=== PATIENT | male | born 1940 | race Caucasian/White ===

== ENCOUNTER 2024-06-24 18:27 | Emergency (ER) | payer OTHER, SELFPAY ==
[2024-06-24] VITALS (7 sets, daily range): BP systolic 128–176; BP diastolic 69–98; PULSE 73–115; RESP 15–20; TEMP 36.9–38.3; O2SAT 92–95; BMI 28.9
--- NOTE | 2024-06-24 | ECG_ITS ---
Test Reason : dizziness Blood Pressure : / mmHG Vent. Rate : 086 BPM Atrial Rate : 086 BPM P-R Int : 152 ms QRS Dur : 104 ms QT Int : 358 ms P-R-T Axes : 059 -05 028 degrees QTc Int : 428 ms Normal sinus rhythm Incomplete right bundle branch block Borderline ECG No previous ECGs available Referred By: Generic ED Physician Electronically Signed By:VERÓNICA ESCOBAR
--- NOTE | 2024-06-24 19:10 | PC.NURSE ---
this rn assumed care of pt, pt a&ox4, respirations even and unlabored. pt reporting onset of dizziness x2 days ago, pt reports when he is dizzy he feels light headed but denies passing out. pt denies nausea, vomiting and chest pain. ems placed 20G in left ac. pt normal sinus on tele 90bpm.
--- NOTE | 2024-06-24 19:23 | ED_ITS ---
HPI - General Adult General Chief complaint: General Medical Stated complaint: AMS,DIZZY Time Seen by Provider: 06/24/24 19:11 Source: patient Mode of arrival: ambulatory Limitations: no limitations History of Present Illness ED Provider: maribell THURSTON narrative: Patient's with history of gout been complaining of feeling lightheaded since earlier today especially on standing, no fever no cough no chest pain or palpitation no nausea no vomiting Related Data Allergies Allergy/AdvReac Type Severity Reaction Status Date / Time No Known Allergies Allergy Verified 06/24/24 18:43 Review of Systems 2 Review of Systems: Yes all other systems are reviewed and are negative [facility] Social History Social History Alcohol intake: current Alcohol intake frequency: 0-2 drinks per day Smoked in Last 30 Days: No Use of substances other than those prescribed or required for medical reasons: No Advance Directives: Yes Advance Directives Information Provided: No Advance Directives on File: No Physical Exam ED Vital Signs: Vital Signs - 24 hr 06/24/24 18:38 06/24/24 20:00 06/24/24 20:00 Temperature 99.4 F 100.9 F H Pulse Rate 98 95 96 Respiratory Rate 16 18 Blood Pressure 145/84 H 165/78 H 165/78 H Pulse Oximetry 95 92 Oxygen Delivery Method Room Air Room Air 06/24/24 20:01 06/24/24 20:04 06/24/24 22:04 Temperature 99.7 F Pulse Rate 100 112 H 74 Respiratory Rate 20 Blood Pressure 176/95 H 167/94 H 133/73 Pulse Oximetry 92 Oxygen Delivery Method Room Air 06/24/24 23:14 06/24/24 23:14 Temperature 98.4 F 98.4 F Pulse Rate 73 73 Respiratory Rate 15 15 Blood Pressure 128/69 128/69 Pulse Oximetry 94 94 Oxygen Delivery Method Room Air Room Air BMI result Body Mass Index 28.9 Appearance: Alert. Oriented X3. No acute distress. Eyes: PERRLA, No Nystagmus ENT: Pharynx normal. Oral Mucosa moist Neck: Normal inspection. Neck supple. CVS: Normal heart rate and rhythm. Pulses normal. Respiratory: No respiratory distress. Equal air entry bilateral, no wheezing/rales/rhonchi Abdomen: Soft and nontender. Bowel sounds are present, no mass palpable, no CVA tenderness Skin: Skin warm and dry. Normal skin color. Normal skin turgor. Extremities: No lower extremity edema. No calf tenderness Neuro: Oriented X 3. No motor deficit. No sensory deficit.No cerebellar signs , cranial nerves II-XII intact Medications Administered Discontinued Medications Generic Name Dose Route Start Last Admin Trade Name Eastonq PRN Reason Stop Dose Admin Acetaminophen 975 mg 06/24/24 20:16 06/24/24 20:21 Acetaminophen 325 Mg Tablet PO 06/24/24 20:17 975 mg ONCE ONE Administration Sodium Chloride 1,000 mls @ 999 mls/hr 06/24/24 20:16 06/24/24 22:52 Ns IV 06/24/24 21:16 Infused .Q1H1M ONE Infusion Medical Decision Making Medical Decision Making [facility] Narrative: Patient with acute onset of dizziness and weakness noted to have temperature of 100.9 degrees in the ER no source of infection workup essentially negative will do the blood cultures lactic acid patient feels much better will ambulate him if lactic acid level is normal will discharge patient home pending blood culture Differential Diagnosis Differential Diagnoses: The differential diagnosis associated with the presentation includes Viral fever/bacteremia/UTI Lab Data [facility] Lab Attestation statement: I reviewed the patient's lab results. 06/24/24 19:22 06/24/24 19:22 Labs: Lab Results 06/24/24 06/24/24 06/24/24 Range/Units 19:22 19:58 20:12 WBC 7.5 (4.8-10.8) X10*3/uL RBC 4.66 (4.60-5.80) X10*6/uL Hgb 14.7 (14.0-18.0) g/dl Hct 41.3 L (42.0-52.0) % MCV 88.6 (80.0-98.0) fL MCH 31.5 (27.0-33.0) pg MCHC 35.6 (31.0-36.0) g/dl RDW 13.2 (11.0-16.0) % Plt Count 208 (160-400) X10*3/uL MPV 8.3 L (9.4-12.4) fL Immature Gran % (Auto) 0.3 (0.0-0.4) % Neut % (Auto) 71.5 (45-73) % Lymph % (Auto) 17.3 L (20-40) % [place] % (Auto) 8.9 (2-11) % Eos % (Auto) 1.6 (0-4) % Baso % (Auto) 0.4 (0-2) % Lymph # (Auto) 1.3 (1.2-4.9) X10*3/uL [place] # (Auto) 0.7 (0.1-1.2) X10*3/uL Eos # (Auto) 0.1 (0.0-0.4) X10*3/uL Baso # (Auto) 0.0 (0.0-0.2) X10*3/uL Abs Immat Gran (auto) 0.02 (0.00-0.03) X10*3/uL Absolute Neuts (auto) 5.4 (2.0-8.3) x10*3/uL Absolute Nucleated RBC 0.000 (0.0-0.012) X10*3/uL Nucleated RBC % (auto) 0.0 (0.0-0.2) /100WBC Sodium 135 (135-145) mmol/L Potassium 4.5 (3.3-5.1) mmol/L Chloride 104 (96-108) mmol/L Carbon Dioxide 23 (22-29) mmol/L Anion Gap 13 (12-20) BUN 26 H (9-16) mg/dL Creatinine 1.23 (0.5-1.4) mg/dL Estim Creat Clear Calc 49.4 Estimated GFR 56 Random Glucose 107 (60-115) mg/dL Lactic Acid (0.5-2.0) mmol/L Calcium 9.7 (8.4-10.2) mg/dL Total Bilirubin 0.7 (0.0-1.0) mg/dL AST 25 (5-37) U/L ALT 24 (0-40) U/L Alkaline Phosphatase 60 (39-117) U/L Troponin I High Sens 6.6 (<3.5-35.0) ng/L Total Protein 7.6 (6.5-8.0) g/dL Albumin 4.3 (3.5-5.0) g/dL Urine Color Yellow Urine Appearance Clear Urine pH 6.0 (5.0-9.0) Ur Specific [place] 1.020 (1.005-1.025) Urine Protein Trace (Neg-Trace) mg/dL Urine Glucose (UA) Negative (Negative) mg/dL Urine Ketones Negative (Negative) mg/dL Urine Blood Trace (Negative) Urine Nitrite Negative (Negative) Ur Leukocyte Esterase Negative (Negative) Urine RBC 0-2 (0-2) /HPF Urine WBC 0-5 (0-5) /HPF Ur Squamous Epith Cells 0-2 (0-2) /HPF Urine Bacteria None Seen (None Seen) Hyaline Casts 0-2 (0-2) /LPF Urine Opiates Screen Not Detected (Not Detect) Ur Buprenorphine Scrn Not Detected (Not Detect) ng/mL Ur Oxycodone Screen Not Detected (Not Detect) ng/mL Urine Methadone Screen Not Detected (Not Detect) ng/mL Urine Fentanyl Screen Not Detected (Not Detect) Ur Barbiturates Screen Not Detected (Not Detect) Ur Phencyclidine Scrn Not Detected (Not Detect) Ur Amphetamines Screen Not Detected (Not Detect) U Benzodiazepines Scrn Not Detected (Not Detect) Urine Cocaine Screen Not Detected (Not Detect) U Marijuana (THC) Screen Not Detected (Not Detect) COVID-19 (XUAN) Negative (Negative) COVID-19 Clin Com See Note 06/24/24 Range/Units 21:37 WBC (4.8-10.8) X10*3/uL RBC (4.60-5.80) X10*6/uL Hgb (14.0-18.0) g/dl Hct (42.0-52.0) % MCV (80.0-98.0) fL MCH (27.0-33.0) pg MCHC (31.0-36.0) g/dl RDW (11.0-16.0) % Plt Count (160-400) X10*3/uL MPV (9.4-12.4) fL Immature Gran % (Auto) (0.0-0.4) % Neut % (Auto) (45-73) % Lymph % (Auto) (20-40) % [place] % (Auto) (2-11) % Eos % (Auto) (0-4) % Baso % (Auto) (0-2) % Lymph # (Auto) (1.2-4.9) X10*3/uL [place] # (Auto) (0.1-1.2) X10*3/uL Eos # (Auto) (0.0-0.4) X10*3/uL Baso # (Auto) (0.0-0.2) X10*3/uL Abs Immat Gran (auto) (0.00-0.03) X10*3/uL Absolute Neuts (auto) (2.0-8.3) x10*3/uL Absolute Nucleated RBC (0.0-0.012) X10*3/uL Nucleated RBC % (auto) (0.0-0.2) /100WBC Sodium (135-145) mmol/L Potassium (3.3-5.1) mmol/L Chloride (96-108) mmol/L Carbon Dioxide (22-29) mmol/L Anion Gap (12-20) BUN (9-16) mg/dL Creatinine (0.5-1.4) mg/dL Estim Creat Clear Calc Estimated GFR Random Glucose (60-115) mg/dL Lactic Acid 0.9 (0.5-2.0) mmol/L Calcium (8.4-10.2) mg/dL Total Bilirubin (0.0-1.0) mg/dL AST (5-37) U/L ALT (0-40) U/L Alkaline Phosphatase (39-117) U/L Troponin I High Sens (<3.5-35.0) ng/L Total Protein (6.5-8.0) g/dL Albumin (3.5-5.0) g/dL Urine Color Urine Appearance Urine pH (5.0-9.0) Ur Specific [place] (1.005-1.025) Urine Protein (Neg-Trace) mg/dL Urine Glucose (UA) (Negative) mg/dL Urine Ketones (Negative) mg/dL Urine Blood (Negative) Urine Nitrite (Negative) Ur Leukocyte Esterase (Negative) Urine RBC (0-2) /HPF Urine WBC (0-5) /HPF Ur Squamous Epith Cells (0-2) /HPF Urine Bacteria (None Seen) Hyaline Casts (0-2) /LPF Urine Opiates Screen (Not Detect) Ur Buprenorphine Scrn (Not Detect) ng/mL Ur Oxycodone Screen (Not Detect) ng/mL Urine Methadone Screen (Not Detect) ng/mL Urine Fentanyl Screen (Not Detect) Ur Barbiturates Screen (Not Detect) Ur Phencyclidine Scrn (Not Detect) Ur Amphetamines Screen (Not Detect) U Benzodiazepines Scrn (Not Detect) Urine Cocaine Screen (Not Detect) U Marijuana (THC) Screen (Not Detect) COVID-19 (XUAN) (Negative) COVID-19 Clin Com Discharge Plan Discharge Clinical Impression: Fever, Dizziness Patient Disposition: Home, Self-Care Instructions: Fever in Adults (ED), Lightheadedness (ED) Additional Instructions: Drink plenty of fluids Cause of your low-grade fever is not clear likely viral Report to the ER if gets worse Tylenol/Motrin for fever We have done blood culture and will call you if anything grows in the blood Interventions: ED Discharge Assessment Last Done: 06/24/24 23:14 Discharge Date/Time: 06/24/24 23:15 Print Language: Luxembourgish
[2024-06-24 19:26] LABS: MANUAL DIFF FLAG NO
[2024-06-24 19:29] LABS: Basophils Percent Auto 0.4 % (0-2); Eosinophils Absolute Auto 0.1 X10*3/uL (0.0-0.4); Eosinophils Percent Auto 1.6 % (0-4); Hematocrit 41.3 % (42.0-52.0); Hemoglobin 14.7 g/dl (14.0-18.0); Imm Gran Abs Auto 0.02 X10*3/uL (0.00-0.03); Imm Gran Pct Auto 0.3 % (0.0-0.4); Lymphocytes Absolute Auto 1.3 X10*3/uL (1.2-4.9); Lymphocytes Percent Auto 17.3 % (20-40); Mean Corpuscular HGB Conc 35.6 g/dl (31.0-36.0); Mean Corpuscular Hemoglobin 31.5 pg (27.0-33.0); Mean Corpuscular Volume 88.6 fL (80.0-98.0); Mean Platelet Volume 8.3 fL (9.4-12.4); Monocytes Absolute Auto 0.7 X10*3/uL (0.1-1.2); Monocytes Percent Auto 8.9 % (2-11); Neutrophils Absolute Auto 5.4 x10*3/uL (2.0-8.3); Neutrophils Percent Auto 71.5 % (45-73); Platelet Count 208 X10*3/uL (160-400); Red Blood Count 4.66 X10*6/uL (4.60-5.80); Red Cell Distribution Width 13.2 % (11.0-16.0); White Blood Count 7.5 X10*3/uL (4.8-10.8)
[2024-06-24 19:48] LABS: Alanine Aminotransferase 24 U/L (0-40); Albumin Level 4.3 g/dL (3.5-5.0); Alkaline Phosphatase 60 U/L (39-117); Anion Gap 13 (12-20); Aspartate Amino Transferase 25 U/L (5-37); Bilirubin Total 0.7 mg/dL (0.0-1.0); Blood Urea Nitrogen 26 mg/dL (9-16); Calcium 9.7 mg/dL (8.4-10.2); Carbon Dioxide 23 mmol/L (22-29); Chloride 104 mmol/L (96-108); Creatinine Clr Calc Pharmacy 49.4; Estimated Glomerular Filt Rate 56; Glucose Random 107 mg/dL (60-115); Potassium 4.5 mmol/L (3.3-5.1); Sodium 135 mmol/L (135-145); Total Protein 7.6 g/dL (6.5-8.0)
[2024-06-24 19:55] LABS: Troponin-I High Sensitivity 6.6 ng/L (<3.5-35.0)
--- NOTE | 2024-06-24 20:09 | MHC.EDTECH ---
pt walked to and from bathroom with 1 assist and steady gait. pt did mention feeling dizzy once he got back in bed, RN aware
[2024-06-24 20:21] LABS: Appearance Urine Clear; Color Urine Yellow; Glucose Urine UA Negative (Negative); Leukocyte Esterase Urine Negative (Negative); Nitrite Urine Negative (Negative); UMIC TRIGGER UACC YES; Urine Blood Trace (Negative); Urine Ketones Negative (Negative); Urine Protein Trace mg/dL (Neg-Trace)
[2024-06-24] MEDS: Acetaminophen 325 MG TABLET 975 MG PO (20:21)
[2024-06-24] MEDS: 0.9 % Sodium Chloride 1,000 ML 999 ML IV (20:22)
--- NOTE | 2024-06-24 20:23 | PC.NURSE ---
pt noted to have fever, aware. pt medicated per dec.
[2024-06-24 20:26] LABS: Bacteria Urine None Seen (None Seen); Hyaline Casts Urine 0-2 /LPF (0-2); RBC Urine 0-2 /HPF (0-2); Squamous Epithelial Cell Urine 0-2 /HPF (0-2); WBC Urine 0-5 /HPF (0-5)
[2024-06-24 20:33] LABS: COVID-19 Test Negative (Negative); IDNOW Serial# 08D9AD1C
[2024-06-24 20:40] LABS: Amphetamine Screen Urine Not Detected (Not Detect); Barbiturates, Urine Not Detected (Not Detect); Benzodiazepines Screen Urine Not Detected (Not Detect); Buprenorphine Scr Not Detected (Not Detect); Cannabinoid Screen Urine Not Detected (Not Detect); Cocaine Screen Urine Not Detected (Not Detect); Fentanyl, urine Not Detected (Not Detect); Methadone Screen, Urine Not Detected (Not Detect); Opiate Screen Urine Not Detected (Not Detect); Oxycodone Screen Urine Not Detected (Not Detect); Phencyclidine Screen Urine Not Detected (Not Detect)
--- OUTSIDE RECORDS SUMMARY | 2024-06-24 21:32 | XMS_ITS | Continuity of Care Document ---
Author Organization [facility] Address [address] [facility] [address] [place] [address]- Care Team Providers Care Solution Spec Name Role Phone Nata GLEZ, Daniel Primary Care Physician Encounter 03/18/23 - 03/25/23 [facility] [address] [facility] [address] [place] [address]- Attending Physician: Angélica Smith Admitting Physician: Angélica Smith Referring Physician: Angélica Smith Results Radiology Reports * Exam Date Time Procedure Performing Provider Status 03/18/23 11:[address] Abd/Pelvis W/O Contrast Dusty Regalado; Auth (Verified) Notes: (CT Abd/Pelvis W/O Contrast) Reason For Exam: n50.9 r10.84 disorder of male genital organs unspecified generalized abd pain RESULT: CT Abd/Pelvis W/O Contrast CT Abd/Pelvis W/O Contrast Reason: n50.9 r10.84 disorder of male genital organs unspecified generalized abd pain; Clinical Question(s): Other: TECHNIQUE: Spiral CT through the abdomen and pelvis without IV contrast formatted in 3 planes. Thisstudy was performed without oral contrast. Weight- based protocol using automatic tube modulation was used to optimize exposure parameters. CTDIvol Body: 12.02 mGy, DLP Body: 743 mGy*cm. COMPARISON: 08/22/2012 from [facility] FINDINGS: The heart is normal in size. Coronary arterial calcification is present. There is no pericardial effusion. Linear areas of scar or atelectasis within the lingula and left lower lobe are seen. The liver, gallbladder, spleen, pancreas, and adrenal glands have an unremarkable unenhanced appearance. The kidneys are normal in morphology. No cysts, masses, or calculi are seen. Minimal perinephric stranding bilaterally is consistent with senescent change. The bladder wall is slightly thickened and there are right and left bladder wall diverticula, new from the prior study. No adjacent inflammatory change is seen. The appendix is unremarkable. Diverticulosis of the descending colon and rectosigmoid is seen without wall thickening or mesenteric stranding to suggest the presence of diverticulitis. There is no obstruction. There is no free air, free fluid, or lymphadenopathy. The osseous structures are intact. IMPRESSION: Bladder wall thickening and multiple diverticula which could be due to chronic bladder outlet obstruction. Correlation for urinalysis and consideration of cystoscopy is suggested. An actionable message (Yellow) has been communicated via the [facility] system on 03/18/2023 12:47 PM, Message ID [id number]. WSN: [id number] Ordering Physician: Angélica Pino Dictated By: Lucrecia Loya MD Dictated Date/Time: 03/18/23 12:47 p Reviewed By: Lucrecia Loya MD Signed By: Lucrecia Loya MD Signed Date/Time: 03/18/23 12:47 pm Transcribed By: HERNANDEZ Transcribed Date/Time: 03/18/23 12:[address] Abdomen and Pelvis WO contrast * [facility]SP[facility]ers[facility] , CIS S: TRANSCRIBE Lucrecia Loya MD: VERIFY Event Display: Result: Authored Date: [id number] CT Abd/Pelvis W/O Contrast Reason: n50.9 r10.84 disorder of male genital organs unspecified generalized abd pain; Clinical Question(s): Other: TECHNIQUE: Spiral CT through the abdomen and pelvis without IV contrast formatted in 3 planes. Thisstudy was performed without oral contrast. Weight- based protocol using automatic tube modulation was used to optimize exposure parameters. CTDIvol Body: 12.02 mGy, DLP Body: 743 mGy*cm. COMPARISON: 08/22/2012 from [facility] FINDINGS: The heart is normal in size. Coronary arterial calcification is present. There is no pericardial effusion. Linear areas of scar or atelectasis within the lingula and left lower lobe are seen. The liver, gallbladder, spleen, pancreas, and adrenal glands have an unremarkable unenhanced appearance. The kidneys are normal in morphology. No cysts, masses, or calculi are seen. Minimal perinephric stranding bilaterally is consistent with senescent change. The bladder wall is slightly thickened and there are right and left bladder wall diverticula, new from the prior study. No adjacent inflammatory change is seen. The appendix is unremarkable. Diverticulosis of the descending colon and rectosigmoid is seen without wall thickening or mesenteric stranding to suggest the presence of diverticulitis. There is no obstruction. There is no free air, free fluid, or lymphadenopathy. The osseous structures are intact. IMPRESSION: Bladder wall thickening and multiple diverticula which could be due to chronic bladder outlet obstruction. Correlation for urinalysis and consideration of cystoscopy is suggested. An actionable message (Yellow) has been communicated via the [facility] system on 03/18/2023 12:47 PM, Message ID [id number]. WSN: [id number] Ordering Physician: Angélica Pino Dictated By: Lucrecia Loya MD Dictated Date/Time: 03/18/23 12:47 p Reviewed By: Lucrecia Loya MD Signed By: Lucrecia Loya MD Signed Date/Time: 03/18/23 12:47 pm Transcribed By: HERNANDEZ Transcribed Date/Time: 03/18/23 12:35 pm Patient Care team information Care Team Personnel Name: Daniel Peace MD Position: Reference Physician Member Role: PCP Address: Address: [address] [place] [address]- Care Team Related Persons Name: GOMEZ GUTIERRES Address: [facility] [address] [place] [address]
--- OUTSIDE RECORDS SUMMARY | 2024-06-24 21:32 | XMS_ITS | Continuity of Care Document ---
Author Organization [facility] Address [address] [place] [address]- Care Team Providers Care Generator Repairer Name Role Phone Hannah Menchaca MD Primary Care Physician Unava ilable [place] [facility] [place]23 - 08/29/23 [facility] [address] [place] [address]- Attending Physician: Louisa Iqbal Admitting Physician: Louisa Iqbal Referring Physician: Louisa Iqbal Allergies, Adverse Reactions, Alerts Substance Reaction Severity Status amoxicillin 1 Persistent Mild Active finasteride 2 Persistent Mild Active lisinopril 3 Persistent Severe Active diclofenac 4 Persistent Mild Active Peridex 5 Persistent Mild Active Latex 6 Persistent Mild Active 1RASH. HIVES 2DIZZY, NAUSEA 3swelling 4rash 5RASH, HIVES 6RASH Medications amLODIPine 5 mg oral tablet 1 tablet = 5 mg, By Mouth, Daily, TAKE 1 TABLET BY MOUTH EVERY DAY Start Date: 06/03/23 Status: Ordered gabapentin 100 mg oral capsule 100 mg, 1, capsule, Refills 0, Maintenance, 07/30/23 15:04:00 EDT, Partial fill upon patient request if the prescription is for a schedule II opioid drug. Start Date: 07/30/23 Status: Ordered lovastatin 40 mg oral tablet 1.5 tablets, By Mouth, Daily at bedtime, 0 Refills, Maintenance, 06/03/23 8:39:00 EDT, Partial fillupon patient request if the prescription is for a schedule II opioid drug. Start Date: 06/03/23 Status: Ordered tamsulosin 0.4 mg oral capsule 0.8 mg, 2, capsule, By Mouth, Daily at bedtime, Refills 0, Maintenance, 06/03/23 8:39:00 EDT, Partial fill upon patient request if the prescription is for a schedule II opioid drug. Start Date: 06/03/23 Status: Ordered telmisartan 40 mg oral tablet 1 tablet = 40 mg, By Mouth, Daily, 0 Refills, Maintenance, 06/03/23 8:39:00 EDT, Partial fill upon patient request if the prescription is for a schedule II opioid drug. Start Date: 06/03/23 Status: Ordered Problem List Condition Confirmation Course Effective Dates Status Health St atus Informant Chronic pain Confirmed Active Pudendal neuralgia Confirmed Active Patient Care team information Care Team Personnel Name: Hannah Menchaca MD Position: [facility] Outreach Member Role: PCP Address: Address: [address] [place] [id number]- Care Team Related Persons Name: GOMEZ GUTIERRES Address: home [address] [place] [address]
--- OUTSIDE RECORDS SUMMARY | 2024-06-24 21:32 | XMS_ITS | Continuity of Care Document ---
Author Organization [facility] Address [address] [place] [address]- Care Team Providers Care Business Banking Officer Name Role Phone Hannah Menchaca MD Primary Care Physician Unava ilable Encounter [facility] [place] [place] [id number] Date(s): 06/05/23 - 07/05/23 [facility] [address] [place] [address]- Allergies, Adverse Reactions, Alerts Substance Reaction Severity [...] EVERY DAY Start Date: 06/03/23 Status: Ordered lovastatin 40 mg oral tablet [...] opioid drug. Start Date: 06/03/23 Status: Ordered Patient Care team information Care Team Personnel Name: Hannah Menchaca MD Position: S Outreach Member Role: PCP Address: Address: [address] [place] [address] [place] [address]- Care Team Related Persons Name: GOMEZ GUTIERRES Address: home [address] [place] [address]
--- OUTSIDE RECORDS SUMMARY | 2024-06-24 21:32 | XMS_ITS | Continuity of Care Document ---
Author Organization [facility] Address [address] [address]- Care Team Providers Care Shotblast Operator Name Role Phone Daniel Peace MD Primary Care Physician Encounter [facility] Date(s): 04/29/23 - 05/29/23 [facility] [address] [place] [id number]- Patient Care team information Care Team Personnel Name: Daniel Peace MD Position: Reference Physician Member Role: PCP Address: Address: [address] [place] [address]- Care Team Related Persons Name: GOMEZ GUTIERRES Address: home [address] [place] [address]
--- NOTE | 2024-06-24 21:51 | MHC.EDTECH ---
pt ambulated around the ER, to the bathroom, and walked back to room with a steady gait and no complaints
[2024-06-24 21:58] LABS: Lactic Acid 0.9 mmol/L (0.5-2.0)
== END 2024-06-24 23:15 | disposition home or self-care (01) ==
PROVIDERS: Emergency Provider Internal Medicine
DX: R50.9 Fever, unspecified (principal); R42 Dizziness and giddiness; R41.82 Altered mental status, unspecified; I45.10 Unspecified right bundle-branch block; Z11.52 Encounter for screening for COVID-19; Z79.899 Other long term (current) drug therapy; Z51.81 Encounter for therapeutic drug level monitoring
CPT/HCPCS: 36415; 80053; 80307; 81001; 83605; 84484; 85025; 87040; 87635; 93005; 99285

== ENCOUNTER 2024-06-25 08:05 | Emergency (ER) | payer OTHER, SELFPAY ==
--- NOTE | ~2024-06-25 | CT_ITS ---
EXAMINATION: CT HEAD WITHOUT CONTRAST CLINICAL INFORMATION: Confusion and weakness. COMPARISON: None. TECHNIQUE: Contiguous axial imaging was performed from the skull base to vertex without intravenous administration of contrast. This CT examination was performed using dose optimization techniques as appropriate, variously including the following: *Automated exposure control *Adjustment of mA and/or kV according to patient size (this includes techniques or standardized protocols for targeted exams where dose is matched to indication/reason for exam; i.e. extremities or head) *Use of iterative reconstruction technique DLP: 6 cm and 37 mGy-cm FINDINGS: There is no evidence of acute intracranial hemorrhage or edematous territorial infarction. A few foci of hypoattenuation in the periventricular and deep white matter are consistent with mild microangiopathy. [place]-white matter differentiation is preserved. Proportional prominence of the ventricles and sulcal spaces. No evidence for obstructive hydrocephalus. No abnormal mass effect or midline shift. No extra-axial fluid collections. No acute soft tissue or osseous abnormalities. Opacification of the right frontal sinus and partial opacification of several ethmoid air cells. Mucous retention cyst in the posterior right-sided sphenoidal sinus. Small amount of inspissated mucous secretions adjacent to the maxillary antrum on the right side. Bilateral lens extraction. CT/CT head/brain wo IV con IMPRESSION: 1. No evidence of acute intracranial hemorrhage or edematous territorial infarction. 2. 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 3. Paranasal sinus disease. Correlate clinically for the presence of acute sinusitis. Electronically signed by: Rachel Guidry MD 06/25/2024 12:32 PM EDT
--- NOTE | ~2024-06-25 | XR_ITS ---
EXAMINATION: XR CHEST CLINICAL INFORMATION: Fever. COMPARISON: None available. TECHNIQUE: Frontal view of the chest was obtained. FINDINGS: Low lung volumes. Subtle bibasilar hazy airspace opacities and streaky opacities. No pleural effusion or pneumothorax. Normal appearance of the cardiomediastinal silhouette. No acute osseous findings. XR/XR chest 1V IMPRESSION: Possibly early infectious/inflammatory infiltrates in the lower lobes with admixed subsegmental atelectasis. Recommend short-term follow-up radiograph to ensure resolution. Electronically signed by: Rachel Guidry MD 06/25/2024 09:15 AM EDT
--- NOTE | 2024-06-25 08:15 | ECG_ITS ---
Test Reason : AMS Blood Pressure : / mmHG Vent. Rate : 081 BPM Atrial Rate : 081 BPM P-R Int : 154 ms QRS Dur : 106 ms QT Int : 384 ms P-R-T Axes : 045 -25 009 degrees QTc Int : 446 ms Normal sinus rhythm Incomplete right bundle branch block Cannot rule out Anterior infarct , age undetermined Abnormal ECG When compared with ECG of 24-JUN-2024 19:05, No significant change was found Referred By: Josephine Alvarado Electronically Signed By:VERÓNICA ESCOBAR
--- NOTE | 2024-06-25 08:16 | ED.WEAKNESS ---
HPI - Weakness General Chief complaint: General Medical Stated complaint: AMS x2 days condition worsened since last visit Time Seen by Provider: 06/25/24 08:05 Source: patient and EMS Limitations: no limitations History of Present Illness ED Provider: Agueda Alvarado PA-C HPI Narrative: 84 yo male with history of HTN presents to the ER from home for evaluation of confusion and weakness. He was seen here yesterday for a fever of 100.9, had unremarkable workup with a negative COVID swab, normal lactic acid, normal white blood cell count. He was sent home with pending blood cultures, told to return if he had new or worsening symptoms. Family reports he did not sleep all night, he was confused. When trying to ambulate he felt more weak and needed to rest. His called 911 for further evaluation treatment. He was confused for EMS but hemodynamically stable On arrival to the ER patient is alert and oriented x3. MD Complaint: generalized weakness, lack of energy and difficulty walking Onset (ago): day(s) (1) Duration: progressively worsening Location: generalized Severity: moderate Relieving factors: none Exacerbating factors: none Associated symptoms: denies other symptoms Related Data Previous Rx's ?Medication ?Instructions ?Recorded azithromycin 250 mg tablet 250 mg PO DAILY 4 days #4 tabs 06/25/24 cefpodoxime 200 mg tablet 200 mg PO BID #12 tabs 06/25/24 Allergies Allergy/AdvReac Type Severity Reaction Status Date / Time amoxicillin Allergy Unknown Verified 06/25/24 08:32 clavulanic acid Allergy Unknown Verified 06/25/24 09:02 [From Augmentin] clindamycin Allergy Unknown Verified 06/25/24 09:03 diclofenac Allergy Unknown Verified 06/25/24 08:32 Latex, Natural Rubber Allergy Unknown Verified 06/25/24 09:03 lisinopril Allergy Angioedema Verified 06/25/24 09:03 doxycycline AdvReac Unknown Verified 06/25/24 09:02 Review of Systems Review of Systems: Yes all other systems are reviewed and are negative ON LICENSE OF [facility] Social History Social History Alcohol intake: current Alcohol intake frequency: a few times a week Advance Directives Date on File: 06/24/24 Physical Exam Vital Signs: Vital Signs: Last Vital Signs Temp 98.1 F 06/25/24 10:00 Pulse 77 06/25/24 14:45 Resp 23 H 06/25/24 11:58 BP 140/70 H 06/25/24 14:45 Pulse Ox 93 06/25/24 14:45 O2 Del Method Room Air 06/25/24 11:58 BMI result Body Mass Index 28.0 Appearance: Alert elderly male sitting up in the stretcher. Oriented X3. No acute distress. Head: normocephalic, atraumatic. Eyes: Pupils equal, round and reactive to light. ENT: Pharynx normal. No tonsillar swelling or exudate. Neck: Normal inspection. Neck supple. CVS: Normal heart rate and rhythm. Pulses normal. Respiratory: No respiratory distress. Breath sounds diminished at the bases Abdomen: Soft and nontender. +BS x4 Skin: Skin warm and dry. Normal skin color. Normal skin turgor. No rashes. Extremities: No lower extremity edema. No joint swelling. Neuro/psych: Oriented X 3. No motor deficit. No sensory deficit. Strength is equal and symmetrical throughout CN II-XII intact. Normal speech and cognition. Course Reevaluation(s) Reevaluation #1: Physician observation started at 1304 - patient was placed in physician observation pending physical therapy evaluation and case management consultation. Will plan to ambulate with pulse oximetry to ensure he does not desaturate. He was treated with IV antibiotics for pneumonia and has been significantly improved. He is not altered or confused. He continued have nonfocal mental status on re-evaluation. He is feeling better. Time: 13:04 Reevaluation #2: Physician observation discontinued at this time. Patient was seen by Physical therapy and did very well. He was saturating 94% with ambulation and did not desaturate. No shortness a breath. He does not require ICU level of care at this time. Patient is stable for discharge with home PT services. Case management is arranging this. Stable for DC. Family updated at the bedside and is agreeable with plan Time: 16:08 Medications Administered Discontinued Medications Generic Name Dose Route Start Last Admin Trade Name Freq PRN Reason Stop Dose Admin Ceftriaxone Sodium 1 gm/ 50 mls @ 100 mls/hr 06/25/24 09:20 06/25/24 11:01 Sodium Chloride IV 06/25/24 09:49 Infused ONCE ONE Infusion Azithromycin 500 mg/ Sodium 250 mls @ 125 mls/hr 06/25/24 09:20 06/25/24 12:32 Chloride IV 06/25/24 11:19 Infused ONCE ONE Infusion Medical Decision Making Medical Decision Making [facility] Narrative: 84 yo male with history of HTN presents to the ER from home for evaluation of confusion and weakness. He was seen here yesterday after he developed symptoms at home including fever. He had an unremarkable workup and was sent home. Symptoms overnight continue to worsen, inability to ambulate due to weakness and confusion. On arrival to the ER he is oriented x3, although slow to respond at times. He is nonfocal neurologically, with equal and symmetrical strength throughout. Some global weakness is noted. NIH is 0. He is hemodynamically stable, afebrile. Saturating well on room air. He does endorse some weakness and not feeling ?right. ? Lab workup repeated today shows no leukocytosis. Lactic acid is normal. Read today is showing bilateral pneumonia. He is not hypoxic. He has remained awake, alert, oriented and nonfocal on examination. IV antibiotics for community-acquired pneumonia were given along with IV fluids. Patient felt improved after these interventions. Physical therapy saw the patient and recommended home with PT. Family comfortable with discharge home as he clinically improved today. Comfortable discharge home, return precautions were discussed. Stable for DC Differential Diagnosis Differential Diagnoses: The differential diagnosis associated with the presentation includes viral illness, tick borne illness, pneumonia, UTI, bacteremia, doubt meningitis Admission/Observation Consideration of admission/observation: Escalation of care including admission/observation considered Lab Data [facility] Lab Attestation statement: I reviewed the patient's lab results. 06/25/24 08:49 06/25/24 08:49 Labs: Lab Results 06/25/24 06/25/24 06/25/24 Range/Units 08:49 08:59 09:07 WBC 6.8 (4.8-10.8) X10*3/uL RBC 4.99 (4.60-5.80) X10*6/uL Hgb 15.5 (14.0-18.0) g/dl Hct 45.4 (42.0-52.0) % MCV 91.0 (80.0-98.0) fL MCH 31.1 (27.0-33.0) pg MCHC 34.1 (31.0-36.0) g/dl RDW 13.2 (11.0-16.0) % Plt Count 202 (160-400) X10*3/uL MPV 8.3 L (9.4-12.4) fL Immature Gran % (Auto) 0.3 (0.0-0.4) % Neut % (Auto) 71.6 (45-73) % Lymph % (Auto) 18.3 L (20-40) % [place] % (Auto) 9.0 (2-11) % Eos % (Auto) 0.4 (0-4) % Baso % (Auto) 0.4 (0-2) % Lymph # (Auto) 1.2 (1.2-4.9) X10*3/uL [place] # (Auto) 0.6 (0.1-1.2) X10*3/uL Eos # (Auto) 0.0 (0.0-0.4) X10*3/uL Baso # (Auto) 0.0 (0.0-0.2) X10*3/uL Abs Immat Gran (auto) 0.02 (0.00-0.03) X10*3/uL Absolute Neuts (auto) 4.8 (2.0-8.3) x10*3/uL Absolute Nucleated RBC 0.000 (0.0-0.012) X10*3/uL Nucleated RBC % (auto) 0.0 (0.0-0.2) /100WBC ESR 28 H (0-15) MM/HR Sodium 137 (135-145) mmol/L Potassium 4.4 (3.3-5.1) mmol/L Chloride 105 (96-108) mmol/L Carbon Dioxide 23 (22-29) mmol/L Anion Gap 13 (12-20) BUN 20 H (9-16) mg/dL Creatinine 1.26 (0.5-1.4) mg/dL Estim Creat Clear Calc 47.5 Estimated GFR 55 Random Glucose 109 (60-115) mg/dL Lactic Acid 1.0 (0.5-2.0) mmol/L Calcium 9.8 (8.4-10.2) mg/dL Magnesium 2.2 (1.6-2.6) mg/dL Total Bilirubin 1.0 (0.0-1.0) mg/dL Direct Bilirubin 0.3 (0.0-0.5) mg/dL AST 20 (5-37) U/L ALT 23 (0-40) U/L Alkaline Phosphatase 57 (39-117) U/L C-Reactive Protein 1.75 H (< or = 0.50) mg/dL Total Protein 7.8 (6.5-8.0) g/dL Albumin 4.5 (3.5-5.0) g/dL Urine Color Urine Appearance Urine pH (5.0-9.0) Ur Specific [place] (1.005-1.025) Urine Protein (Neg-Trace) mg/dL Urine Glucose (UA) (Negative) mg/dL Urine Ketones (Negative) mg/dL Urine Blood (Negative) Urine Nitrite (Negative) Ur Leukocyte Esterase (Negative) Respiratory Panel [place] See Note Adenovirus (Rapid PCR) Not Detected (Not Detect.) B.pert (TEM-PCR) Not Detected (Not Detect.) B.parapertussis DNA PCR Not Detected (Not Detect.) C. pneumoniae DNA (PCR) Not Detected (Not Detect.) Coronavirus OC43 (PCR) Not Detected (Not Detect.) Coronavirus HKU1 (PCR) Not Detected (Not Detect.) Coronavirus 229E (PCR) Not Detected (Not Detect.) Coronavirus NL63 (PCR) Not Detected (Not Detect.) Human Metapneumovir PCR Not Detected (Not Detect.) Influenza A (RT-PCR) Not Detected (Not Detect.) Influenza B (RT-PCR) Not Detected (Not Detect.) M. pneumoniae (PCR) Not Detected (Not Detect.) Parainfluenza 1 (PCR) Not Detected (Not Detect.) Parainfluenza 2 (PCR) Not Detected (Not Detect.) Parainfluenza 3 (PCR) Not Detected (Not Detect.) Parainfluenza 4 (PCR) Not Detected (Not Detect.) RSV (PCR) Not Detected (Not Detect.) Entero/Rhino (PCR) Not Detected (Not Detect.) SARS-CoV-2 RNA (RT-PCR) Not Detected (Not Detect.) 06/25/24 Range/Units 09:15 WBC (4.8-10.8) X10*3/uL RBC (4.60-5.80) X10*6/uL Hgb (14.0-18.0) g/dl Hct (42.0-52.0) % MCV (80.0-98.0) fL MCH (27.0-33.0) pg MCHC (31.0-36.0) g/dl RDW (11.0-16.0) % Plt Count (160-400) X10*3/uL MPV (9.4-12.4) fL Immature Gran % (Auto) (0.0-0.4) % Neut % (Auto) (45-73) % Lymph % (Auto) (20-40) % [place] % (Auto) (2-11) % Eos % (Auto) (0-4) % Baso % (Auto) (0-2) % Lymph # (Auto) (1.2-4.9) X10*3/uL [place] # (Auto) (0.1-1.2) X10*3/uL Eos # (Auto) (0.0-0.4) X10*3/uL Baso # (Auto) (0.0-0.2) X10*3/uL Abs Immat Gran (auto) (0.00-0.03) X10*3/uL Absolute Neuts (auto) (2.0-8.3) x10*3/uL Absolute Nucleated RBC (0.0-0.012) X10*3/uL Nucleated RBC % (auto) (0.0-0.2) /100WBC ESR (0-15) MM/HR Sodium (135-145) mmol/L Potassium (3.3-5.1) mmol/L Chloride (96-108) mmol/L Carbon Dioxide (22-29) mmol/L Anion Gap (12-20) BUN (9-16) mg/dL Creatinine (0.5-1.4) mg/dL Estim Creat Clear Calc Estimated GFR Random Glucose (60-115) mg/dL Lactic Acid (0.5-2.0) mmol/L Calcium (8.4-10.2) mg/dL Magnesium (1.6-2.6) mg/dL Total Bilirubin (0.0-1.0) mg/dL Direct Bilirubin (0.0-0.5) mg/dL AST (5-37) U/L ALT (0-40) U/L Alkaline Phosphatase (39-117) U/L C-Reactive Protein (< or = 0.50) mg/dL Total Protein (6.5-8.0) g/dL Albumin (3.5-5.0) g/dL Urine Color Yellow Urine Appearance Clear Urine pH 6.5 (5.0-9.0) Ur Specific [place] 1.015 (1.005-1.025) Urine Protein Negative (Neg-Trace) mg/dL Urine Glucose (UA) Negative (Negative) mg/dL Urine Ketones Negative (Negative) mg/dL Urine Blood Negative (Negative) Urine Nitrite Negative (Negative) Ur Leukocyte Esterase Negative (Negative) Respiratory Panel [place] Adenovirus (Rapid PCR) (Not Detect.) B.pert (TEM-PCR) (Not Detect.) B.parapertussis DNA PCR (Not Detect.) C. pneumoniae DNA (PCR) (Not Detect.) Coronavirus OC43 (PCR) (Not Detect.) Coronavirus HKU1 (PCR) (Not Detect.) Coronavirus 229E (PCR) (Not Detect.) Coronavirus NL63 (PCR) (Not Detect.) Human Metapneumovir PCR (Not Detect.) Influenza A (RT-PCR) (Not Detect.) Influenza B (RT-PCR) (Not Detect.) M. pneumoniae (PCR) (Not Detect.) Parainfluenza 1 (PCR) (Not Detect.) Parainfluenza 2 (PCR) (Not Detect.) Parainfluenza 3 (PCR) (Not Detect.) Parainfluenza 4 (PCR) (Not Detect.) RSV (PCR) (Not Detect.) Entero/Rhino (PCR) (Not Detect.) SARS-CoV-2 RNA (RT-PCR) (Not Detect.) Independent Interpretation I performed an independent interpretation of an: EKG, Plain X-Ray and CT Scan Interpretation: EKG with normal sinus rhythm, ventricular rate 81 beats per minute, normal QTC, no ST segment elevations or depressions, no change from yesterday Chest x-ray with bibasilar opacities agrees radiology read CT head without acute bleed or edema Radiology Impression Discussion of test interpretation with radiology: I have reviewed the radiologist's reading. Independent Historian Clinical information obtained from an independent historian. History obtained from or confirmed by: Spouse and EMS External Record Review External record reviewed: Outpatient record and Prior outpatient labs Tests considered The following testing was considered but not selected: CT scan of the chest was considered however he is not hypoxic, not septic note goes need for CT scan at this time Prescription Management I considered prescription management with: Antiviral and Antibiotic Chronic Conditions Patient?s care impacted by: Hypertension Critical Care Time Critical Care Time Critical Care Time: Yes Total Critical Care Time: 39 Attestation: I have personally provided critical care time exclusive of time spent on separately billable procedures. Time includes review of lab data, radiology results, bedside re-evaluations, and monitoring for potential decompensation. Intervention performed as documented. Discharge Plan Discharge Clinical Impression: Pneumonia Qualifiers: Pneumonia type: due to unspecified organism Laterality: bilateral Lung location: unspecified part of lung Qualified Code(s): J18.9 - Pneumonia, unspecified organism Patient Disposition: Home, Self-Care Instructions: Community Acquired Pneumonia (DC) Additional Instructions: Your lab workup today was reassuring. You tested negative for COVID, flu, RSV. Your chest x-ray showed pneumonia. Your given IV antibiotics here in the ER today. Your oxygen levels remained stable even when your walking. Physical therapy is being arranged to come to your home to help build strength It is important that you continue eating & drinking even if you do not have a great appetite. Take the prescribed antibiotics as directed, start him 1st thing tomorrow morning, do not miss any doses and complete the entire course. Recommend following up with your primary care doctor next week. If you develop new or worsening symptoms call 911 or come back to the ER for further evaluation. Prescriptions: New azithromycin 250 mg tablet 250 mg PO DAILY 4 Days Qty: 4 0RF Rx Instructions: start on day 2 of therapy cefpodoxime 200 mg tablet 200 mg PO BID Qty: 12 0RF Rx Instructions: must administer with a meal/food Referrals: Hannah Menchaca MD [Primary Care Provider] - Print Language: German
[2024-06-25 08:20] VITALS: BP 142/89; PULSE 82; O2SAT 98; BMI 28.0
[2024-06-25 08:54] LABS: MANUAL DIFF FLAG NO
[2024-06-25 08:56] VITALS: BP 154/90; PULSE 79; RESP 18; TEMP 37.6; O2SAT 97
[2024-06-25 08:56] LABS: Basophils Percent Auto 0.4 % (0-2); Eosinophils Percent Auto 0.4 % (0-4); Hematocrit 45.4 % (42.0-52.0); Hemoglobin 15.5 g/dl (14.0-18.0); Imm Gran Abs Auto 0.02 X10*3/uL (0.00-0.03); Imm Gran Pct Auto 0.3 % (0.0-0.4); Lymphocytes Absolute Auto 1.2 X10*3/uL (1.2-4.9); Lymphocytes Percent Auto 18.3 % (20-40); Mean Corpuscular HGB Conc 34.1 g/dl (31.0-36.0); Mean Corpuscular Hemoglobin 31.1 pg (27.0-33.0); Mean Platelet Volume 8.3 fL (9.4-12.4); Monocytes Absolute Auto 0.6 X10*3/uL (0.1-1.2); Neutrophils Absolute Auto 4.8 x10*3/uL (2.0-8.3); Neutrophils Percent Auto 71.6 % (45-73); Platelet Count 202 X10*3/uL (160-400); Red Blood Count 4.99 X10*6/uL (4.60-5.80); Red Cell Distribution Width 13.2 % (11.0-16.0); White Blood Count 6.8 X10*3/uL (4.8-10.8)
[2024-06-25 09:10] LABS: Alanine Aminotransferase 23 U/L (0-40); Albumin Level 4.5 g/dL (3.5-5.0); Alkaline Phosphatase 57 U/L (39-117); Anion Gap 13 (12-20); Aspartate Amino Transferase 20 U/L (5-37); Bilirubin Direct 0.3 mg/dL (0.0-0.5); Blood Urea Nitrogen 20 mg/dL (9-16); C Reactive Protein 1.75 mg/dL (< or = 0.50); Calcium 9.8 mg/dL (8.4-10.2); Carbon Dioxide 23 mmol/L (22-29); Chloride 105 mmol/L (96-108); Creatinine Clr Calc Pharmacy 47.5; Estimated Glomerular Filt Rate 55; Glucose Random 109 mg/dL (60-115); Magnesium 2.2 mg/dL (1.6-2.6); Potassium 4.4 mmol/L (3.3-5.1); Sodium 137 mmol/L (135-145); Total Protein 7.8 g/dL (6.5-8.0)
[2024-06-25 09:23] LABS: Appearance Urine Clear; Color Urine Yellow; Glucose Urine UA Negative (Negative); Leukocyte Esterase Urine Negative (Negative); Nitrite Urine Negative (Negative); PH 6.5 (5.0-9.0); Specific Gravity - Urine 1.015 (1.005-1.025); Urine Blood Negative (Negative); Urine Ketones Negative (Negative); Urine Protein Negative (Neg-Trace)
[2024-06-25 09:47] LABS: Erythrocyte Sedimentation Rate 28 MM/HR (0-15)
[2024-06-25] MEDS: cefTRIAXone sodium 1 GM in 0.9 % Sodium Chloride 50 ML IV (09:57)
[2024-06-25 10:00] VITALS: BP 146/78; PULSE 77; RESP 18; TEMP 36.7; O2SAT 95
[2024-06-25 10:09] LABS: Adenovirus PCR Not Detected (Not Detect.); Bordetella parapertussis PCR Not Detected (Not Detect.); Bordetella pertussis PCR Not Detected (Not Detect.); Chlamydia pneumoniae PCR Not Detected (Not Detect.); Coronavirus 229E PCR Not Detected (Not Detect.); Coronavirus HKU1 PCR Not Detected (Not Detect.); Coronavirus NL63 PCR Not Detected (Not Detect.); Coronavirus OC43 PCR Not Detected (Not Detect.); Human metapneumovirus PCR Not Detected (Not Detect.); Influenza A PCR Not Detected (Not Detect.); Influenza B PCR Not Detected (Not Detect.); Mycoplasma pneumoniae PCR Not Detected (Not Detect.); Parainfluenza 1 PCR Not Detected (Not Detect.); Parainfluenza 2 PCR Not Detected (Not Detect.); Parainfluenza 3 PCR Not Detected (Not Detect.); Parainfluenza 4 PCR Not Detected (Not Detect.); RSV PCR Not Detected (Not Detect.); Rhino/Enterovirus PCR Not Detected (Not Detect.)
[2024-06-25 10:11] LABS: SARS-CoV-2 PCR Not Detected (Not Detect.)
[2024-06-25] MEDS: Azithromycin 500 MG in 0.9 % Sodium Chloride 250 ML 125 MG IV (10:15)
[2024-06-25 11:58] VITALS: BP 140/70; PULSE 77; RESP 23; O2SAT 93
--- NOTE | 2024-06-25 13:36 | MHC.CM.ED ---
Addendum entered by Anahi Bass 06/25/24 15:42: PT eval supports home w/services: [facility] referrals made - no acceptance at this time. Spoke w/pt and spouse about PT eval - both are in agreement to a return to home as pt seems much better and is demonstrating increased alertness and ambulatory ability. ED provider updated on d/c plan: Informed pt and spouse that we would call with the name of an accepting agency. Spouse to transport Original Note: Received consult for assessment of d/c needs: pt presents to ED from home w/weakness and change in MS. This is pt's 2nd visit in 24 hours. Pt alert, verbal but not answering all ED CM questions. Call placed to pt's spouse who states at baseline pt is A&O x4, drives, independent w/all care needs, played golf on Friday, Friday and is acutely weak, confused and disoriented at times and unable to ambulate. She cites fever and cough at home. She also states pt had possible COVID exposure but is currently testing negative. Pt has not been to a [facility] center and has no services. Workup completed: CXR w/questioning developing infection and POX of 93. Discussed w/provider: no plans for admission. PT eval pending - CM to await results for finalization of d/c needs.
[2024-06-25 14:45] VITALS: BP 140/70; PULSE 77; O2SAT 93
[2024-06-25 16:25] VITALS: BP 140/70; PULSE 80; RESP 18; TEMP 37.2; O2SAT 95
--- NOTE | 2024-06-25 16:42 | MHC.CM.ED ---
CM called , Fatimah ([phone]). Pt and his have accepted [facility]. They are aware that there is no weekend availability. Acceptance sent through [facility].
[2024-06-28 21:44] LABS: Lyme Abs Screen <0.90 index
[2024-06-28 23:13] LABS: A. Phagocytphilium DNA,RT-PCR NOT DETECTED (NOT DETECTED); Babesia Microti DNA, RT-PCR NOT DETECTED (NOT DETECTED); Borrelia Miyamotoi,DNA RT-PCR NOT DETECTED (NOT DETECTED); E.Chaffeensis DNA RT-PCR NOT DETECTED (NOT DETECTED); Lyme(Borrelia ssp)DNA RT-PCR NOT DETECTED (NOT DETECTED)
== END 2024-06-25 16:25 | disposition home or self-care (01) ==
PROVIDERS: Physician Assistant; Emergency Provider Emergency Medicine; PCP Family Medicine
DX: J18.9 Pneumonia, unspecified organism (principal); R41.0 Disorientation, unspecified; R41.82 Altered mental status, unspecified; R53.1 Weakness; I45.10 Unspecified right bundle-branch block; Z03.818 Encounter for observation for suspected exposure to other biological agents ruled out; R50.9 Fever, unspecified; I10 Essential (primary) hypertension
CPT/HCPCS: 36415; 70450; 71045; 80048; 80076; 81003; 83605; 83735; 85025; 85652; 86140; 86617; 86618; 87040; 87468; 87469; 87478; 87484; 87633; 87798; 93005; 96365; 96366; 96367; 97162; 99284; 99285; J0456; J0696